=== PATIENT | male | born 1995 | race Caucasian/White ===

== ENCOUNTER 2017-04-03 12:53 | Emergency (ER) | payer SELFPAY ==
--- NOTE | 2017-04-03 13:32 | Diagnostic Imaging Report ---
[facility] [id number] [facility].[address] [id number] Report Submission Date: Apr 03, 2017 1:31:12 PM SWINGING CUT OFF SAW OPERATOR Patient Study Name: HAILEY SKAGGS Date: Apr 03, 2017 1:14:14 PM SWINGING CUT OFF SAW OPERATOR Modality Type: CR Gender: M Description: CHEST : 89 Institution: [facility] Physician: ALBA MARTIN Examination: Plain film ribs History: Discomfort Findings: 4 views of the chest and ribs demonstrates normal cortical margins. No fracture or dislocation. Underlying parenchymal without abnormality. No focal infiltrate. Cardiac silhouette within normal limits. Impression: No rib fracture/abnormality. No acute pulmonary process. Electronically signed on Apr 03, 2017 1:31:12 PM SWINGING CUT OFF SAW OPERATOR by: Dakota PADILLA
--- NOTE | 2017-04-03 13:54 | ED Physician Documentation ---
General Adult - HISTORIAN Historian: patient - HPI Stated Complaint: R rib pain, right chest swelling Chief Complaint: General Adult Onset: days ago (1) Timing: still present Severity: mild Further Comments: yes (Pt is a 22 yo male with chest wall pain in his R upper chest near the axilla. Pt says he has hx panic attacks and if feeling anxious about it. Pain occurs especially with movement and is 7/10 with movement but very mild if he sits still. Pt does not recall injuring himself or staining himself with playing sports.) - ROS CONST: no problems EYES/ENT: none CVS/RESP: chest pain (chest wall pain upper R chest) GI/: none MS/SKIN/LYMPH: none NEURO/PSYCH: anxiety - PAST HX Past History: other (anxiety) Surgeries/Procedures: other (tonsillectomy, orthopedic surg) Allergies/Adverse Reactions: Allergies Allergy/AdvReac Type Severity Reaction Status Date / Time No Known Allergies Allergy Verified 04/03/17 13:11 Home Medications: Ambulatory Orders Medication Instructions Recorded NK [NK] 04/03/17 - SOCIAL HX Smoking History: cigarettes Drug Use: marijuana - FAMILY HX Family History: No - VITAL SIGNS Vital Signs: Vital Signs Temp Pulse Resp BP Pulse Ox 98.3 F 120 H 16 177/92 99 04/03/17 13:05 04/03/17 13:05 04/03/17 13:05 04/03/17 13:05 04/03/17 13:05 - REVIEWED ASSESSMENTS Nursing Assessment Reviewed: Yes Vitals Reviewed: Yes ED Results Lab/Radiology - Orders Orders: ED Orders Category Date Time Status RIBS UNILATERAL W/ PA CHEST [RAD] Stat Exams 04/03/17 Completed General Adult Physical Exam - PHYSICAL EXAM GENERAL APPEARANCE: mild distress NECK: normal inspection, supple RESPIRATORY: no resp distress, other (chest wall tenderness, upper R chest) CVS: reg rate & rhythm, heart sounds normal ABDOMEN: soft, no organomegaly, normal bowel sounds BACK: normal inspection, no CVA tenderness SKIN: warm/dry, normal color EXTREMITIES: non-tender, normal range of motion, no evidence of injury NEURO: oriented X3, motor nml, sensation nml Discharge Clincal Impression: musculoskeletal pain Referrals: Primary Doctor,No [Primary Care Provider] - Condition: Good Disposition: 01 HOME, SELF-CARE Decision to Admit: NO Decision Time: 13:54
[2017-04-03 14:00] VITALS: BP 157/82
== END 2017-04-03 13:59 | disposition home or self-care (01) ==
LOC: ED 12:53
DX: R07.89 Other chest pain (principal)
CPT/HCPCS: 71101; 99282; 99283